=== PATIENT | female | born 1935 | race Caucasian/White ===

== ENCOUNTER → 2024-08-31 | Outpatient (CLI) | payer MEDICARE, OTHER, SELFPAY ==
[2024-08-31 16:22] LABS: Collection Type, Urine Clean Catch
[2024-08-31 16:59] LABS: Basophils % (Auto) 1 % (0-2.5); Eosinophils # (Auto) 0.1 Thou/mm3 (0.0-0.5); Eosinophils % (Auto) 1 % (0-10); Hematocrit 33.6 % (36.0-46.0); Hemoglobin 11.6 g/dL (12.0-16.0); Immature Granulocytes % (Auto) 0 % (0-0); Immature Granulocytes Auto 0.01 Thou/mm3 (0.00-0.00); Lymphocytes # (Auto) 2.4 Thou/mm3 (1.0-4.8); Lymphocytes % (Auto) 41 % (10-50); Mean Corpuscular HGB Conc 34.5 g/dl (31.0-37.0); Mean Corpuscular Hemoglobin 31.2 pg (25.0-35.0); Mean Corpuscular Volume 90 fL (80-100); Monocytes # (Auto) 0.8 Thou/mm3 (0.0-0.8); Monocytes % (Auto) 14 % (0-12); Neutrophils # (Auto) 2.6 Thou/mm3 (1.8-7.7); Neutrophils % (Auto) 43 % (37-80); Nucleated Red Blood Cell % 0 /100 WBC (0); Platelet Count 223 Thou/mm3 (140-440); RDW Standard Deviation 42.6 fL (36.4-46.3); Red Blood Count 3.72 Miln/mm3 (4.00-5.20); White Blood Count 5.9 Thou/mm3 (3.6-11.0)
[2024-08-31 17:12] LABS: Glucose Estimated Average 134 mg/dL (80-131); Hemoglobin A1C 6.3 % Hgb (4.8-6.0)
[2024-08-31 17:18] LABS: Bacteria,Urine Rare; Bilirubin,Urine Negative (Negative); Blood,Urine Negative (Negative); Clarity,Urine Clear (Clear/Hazy); Color,Urine Lt-Yellow (Lt Yel-Yel); Culture Indicated,Urine Not Indicated; Glucose, Urine Negative (Negative); Ketones,Urine Negative (Negative); Leukocyte Esterase,Urine Negative (Negative); Nitrite,Urine Negative (Negative); PH,Urine 6.5 (5.0-7.0); Protein,Urine Negative (Neg - Trace); RBC,Urine < 1 /hpf (0-3); Specific Gravity,Urine 1.021 (1.001-1.035); Squamous Epithelial Cell,Urine 3 /hpf (0-5); Urobilinogen,Urine Negative mg/dL (0.0-1.0); WBC,Urine < 1 /hpf (0-5)
[2024-08-31 17:25] LABS: Alanine Aminotransferase 12 U/L (10-49); Albumin, Serum 4.6 gm/dL (3.4-4.8); Albumin/Globulin Ratio 2.2 (1.2-2.2); Alkaline Phosphatase 86 U/L (46-116); Anion Gap 9 (7-16); Aspartate Amino Transferase 17 U/L (0-34); BUN/Creatinine Ratio 32 Ratio (12-20); Bilirubin,Total 0.4 mg/dL (0.3-1.2); Blood Urea Nitrogen 29 mg/dL (9-23); Calcium 9.9 mg/dL (8.3-10.6); Calcium (Corrected) 9.9 mg/dL (8.5-10.1); Carbon Dioxide 26.8 mMol/L (20.0-31.0); Cardiac Risk Estimate 6.2 RATIO (3.7-5.6); Chloride 100 mMol/L (98-107); Cholesterol 198 mg/dL (132-200); Creatinine (Component) 0.9 mg/dL (0.6-1.3); Globulin 2.1 gm/dL (2.3-3.5); Glucose 134 mg/dL (74-106); HDL Cholesterol 32 mg/dL (40-60); Osmolality,Calculated 279 (275-295); Potassium 4.1 mMol/L (3.4-5.1); Sodium 136 mMol/L (136-145); Thyroid Stimulating Hormone 1.02 uIU/mL (0.55-4.78); Total Protein 6.7 gm/dL (5.7-8.2); Triglycerides 476 mg/dL (30-150); eGFR > 60 See Note
== END | disposition home or self-care (01) ==
PROVIDERS: PCP Nurse Practitioner Family; Referring Provider Nurse Practitioner Family; Visit Provider Nurse Practitioner Family
DX: Z00.00 Encounter for general adult medical examination without abnormal findings (principal); I10 Essential (primary) hypertension; E78.2 Mixed hyperlipidemia; R73.03 Prediabetes
CPT/HCPCS: 36415; 80053; 80061; 81001; 83036; 84443; 85025

== ENCOUNTER → 2024-09-28 | Outpatient (CLI) | payer MEDICARE, OTHER, SELFPAY ==
[2024-09-28 17:39] LABS: Iron 101 mcg/dL (50-170)
[2024-09-28 17:41] LABS: Vitamin B12 917 pg/mL (211-911)
== END | disposition home or self-care (01) ==
LOC: COPL 16:13
PROVIDERS: PCP Nurse Practitioner Family; Referring Provider Nurse Practitioner Family; Visit Provider Nurse Practitioner Family
DX: D64.9 Anemia, unspecified (principal)
CPT/HCPCS: 36415; 82607; 83540

== ENCOUNTER → 2024-10-03 | Outpatient (CLI) | payer MEDICARE, OTHER, SELFPAY ==
[2024-10-09 06:59] LABS: Fecal Globin Result NOT DETECTED (NOT DETECTED)
== END | disposition home or self-care (01) ==
LOC: SLDO 11:49
PROVIDERS: PCP Nurse Practitioner Family; Referring Provider Nurse Practitioner Family; Visit Provider Nurse Practitioner Family
DX: D64.9 Anemia, unspecified (principal)
CPT/HCPCS: 82274; G0328

== ENCOUNTER 2025-01-19 11:36 | Emergency (ER) | payer MEDICARE, OTHER, SELFPAY ==
[2025-01-19 11:50] VITALS: BP 148/68; PULSE 83; RESP 16; TEMP 36.8; O2SAT 95; BMI 26.5
--- NOTE | 2025-01-19 12:00 | XR_ITS ---
Examination: CT brain head without contrast. 2-D sagittal coronal reconstructions Date and time of exam:January 19, 2025, 1220 hours INDICATIONS: Ground-level fall today with injury to the head, head pain CTDI: vol (mGy):43.8 DLP: (mGycm):872 Technique: Multiple CT axial sections of the brain have been obtained, 5 mm slice thickness. Contrast has not been administered. 2-D sagittal, coronal reconstructions have been obtained Low dose protocols were performed. One or more of the following dose reduction techniques were used; automated exposure control, adjustment of the mA and/or KV according to patient size, use of iterative reconstruction technique. Findings: No significant ventricular enlargement. Intra-axial or extra-axial hemorrhage density is not seen. No mass effect or midline shift Basal cisterns are not remarkable. Fourth ventricle is midline. Cranial vault intact. Impression: Negative for acute hemorrhage, mass effect or midline shift
--- NOTE | 2025-01-19 12:00 | XR_ITS ---
Examination: CT chest, without intravenous contrast. Sagittal and coronal 2-D reconstructions. Exam date and time: January 19, 2025 1223 hours INDICATIONS: Patient fell today with injury to the left chest, left rib pain CTDI:vol (mGy) 11.7 DLP: (mGycm) 425 Technique: Multiple 3.0 mm axial sections of the chest to been obtained. Bone and lung density settings are obtained. Sagittal and coronal 2-D reconstructions have been obtained. Low dose protocols were performed. One or more of the following dose reduction techniques were used; automated exposure control, adjustment of the mA and/or KV according to patient size, use of iterative reconstruction technique. Findings: Thoracic aorta pulmonary arteries appear intact on this noncontrast study No hemopericardium No pneumothorax pulmonary contusion or hemothorax Acute fracture left 10th rib posteriorly with minimal offset Manubrium body the sternum intact Thoracic vertebral bodies intact with spinal stimulator No visualized liver splenic or renal laceration No gallstones No pancreatic mass Posterior 23 mm right renal cyst Visualized abdominal aorta intact IMPRESSION: Thoracic aorta pulmonary arteries intact No hemopericardium, pneumothorax, pulmonary contusion or hemothorax Acute fracture left 10th rib posteriorly
--- NOTE | 2025-01-19 12:03 | EKG_ITS ---
[facility] Test Date: 2025-01-19 Pat Name: JODI WERNER Department: Room: - Gender: Female Center Administrator: : [id number] Requested By: Winifred Dailey Order Number: [id number] Reading MD: Winifred Dailey Measurements Intervals [place] Rate: 76 P: 50 TX: 150 QRS: 32 QRSD: 89 T: 89 QT: 387 QTc: 437 Interpretive Statements SINUS RHYTHM POSSIBLE LEFT ATRIAL ENLARGEMENT [-0.1mV P-WAVE IN V1/V2] NONSPECIFIC ST & T-WAVE ABNORMALITY Compared to ECG 05/01/2024 22:00:03 No significant changes /store/S0/[id number].pdf
--- NOTE | 2025-01-19 12:03 | PD.EDFALL ---
ED Fall Injury RME/HPI General Chief Complaint: Fall Stated Complaint: Fell and hit left ribs on toilet Time Seen by Provider: 01/19/25 11:41 Arrival date/time: 01/19/25 11:36 RME / HPI RME / HPI Narrative: 89-year-old female patient came in for evaluation regarding left posterior rib cage pain. Patient sustained a fall hitting her rib cage on the toilet bowl resulting to pain and contusion. Patient injury sustained yesterday. Patient denies any LOC denies any headache. Denies any nausea or vomiting. Patient is ambulatory. Denies any chest pain or abdominal pain. Patient took Tylenol yesterday. Patient is not taking any blood thinner. Related Data Home Medications ?Medication ?Instructions ?Recorded ?Confirmed telmisartan 40 mg tablet (Micardis) 40 mg PO HS ##0 01/04/12 03/03/23 Cranberry Fruit (Cranberry) 400 mg PO QDAY #0 tabs 12/05/15 03/03/23 Multivitamins (Multi-Vitamin) 1 tab PO QDAY ##0 12/05/15 03/03/23 acetaminophen 500 mg tablet 500 mg PO Q4HR PRN Pain 02/05/23 03/03/23 guaifenesin 400 mg tablet 400 mg PO QDAY 02/05/23 03/03/23 hydrochlorothiazide 25 mg tablet 25 mg PO QDAY 02/05/23 03/03/23 Previous Rx's ?Medication ?Instructions ?Recorded acetaminophen 300 mg-codeine 30 mg 1 tab PO TID PRN pain #21 tabs 01/19/25 tablet lidocaine 5 % topical patch 1 patch topical Q24H #15 ea 01/19/25 Allergies Allergy/AdvReac Type Severity Reaction Status Date / Time bee venom protein (honey bee) Allergy Unknown Rash Verified 01/19/25 11:40 Review of Systems Review of Systems Narrative Review of Systems: Review of system reviewed and within normal limits except mentioned in HPI ED Exam Narrative Physical exam: VITAL SIGNS: Reviewed. GENERAL APPEARANCE: Alert and interactive, follows commands, no acute distress, HEAD AND FACE: Non-traumatic. ENT: PERRL, pink conjunctivitis, eyelid no trauma, Mucous membrane moist. NECK: Supple, nontender, no nuchal rigidity. CHEST: Left posterior rib cage contusion and tenderness, no crepitus, no paradoxical movement, no retractions. LUNGS: Clear, well ventilated, symmetric, no rales, no wheezing, no ronchi, no stridor, good breath sounds bilaterally. HEART: Regular rate, regular rhythm, no murmur, no gallops. ABDOMEN: Soft, positive bowel sounds, nondistended, no guarding, nontender, no rebound, no masses, RECTAL: Deferred. GENITAL: Deferred. NEUROLOGICAL: Gross motor function intact sensory function intact, Appropriate for age. MUSCULOSKELETAL: low back nontender, full range of motion. EXTREMITIES: Nontender, full range of motion. SKIN: Color pink, dry, no rash, no lacerations, no abrasions, no contusions. LYMPHATICS: Deferred. Course Quality Measures none Orders Category Date Time Status EKG (ED ONLY) *Do not use* NOW Care 01/19/25 12:03 Completed Incentive Spirometry Treatment NOW Care 01/19/25 13:[address] chest wo con Stat Exams 01/19/25 12:[address] head/brain wo con Stat Exams 01/19/25 12:00 Completed EKG (ED Only) Stat Exams 01/19/25 12:03 Draft Acetaminophen Tab [Tylenol Tab] Med 01/19/25 12:00 Discontinued 650 mg PO X1 ONE Lidocaine 5% Patch Med 01/19/25 13:27 Discontinued 1 patch TOP X1 ONE Vital Signs Vital signs: Vital Signs Temperature 98.2 F 01/19/25 11:50 Pulse Rate 83 01/19/25 11:50 Respiratory Rate 16 01/19/25 11:50 Blood Pressure 148/68 H 01/19/25 11:50 Pulse Oximetry (%) 95 01/19/25 11:50 Oxygen Delivery Method Room Air 01/19/25 11:50 Fall MDM Narrative MDM Narrative:: 89-year-old female patient came in for evaluation regarding left posterior rib cage pain. Patient sustained a fall hitting her rib cage on the toilet bowl resulting to pain and contusion. Patient injury sustained yesterday. Patient denies any LOC denies any headache. Denies any nausea or vomiting. Patient is ambulatory. Denies any chest pain or abdominal pain. Patient took Tylenol yesterday. Patient is not taking any blood thinner. CT scan of the head came back unremarkable. CT scan of the chest showed Thoracic aorta pulmonary arteries intact No hemopericardium, pneumothorax, pulmonary contusion or hemothorax Acute fracture left 10th rib posteriorly EKG showed normal sinus rhythm, ventricular rate of 76 bpm, no ST segment elevation or depression noted. Results discussed with the patient. Patient received incentive spirometry equipment and education in the emergency room. Patient was also given Tylenol, and lidocaine patch Patient appears nontoxic and hemodynamically stable .Decision to discharge the patient. The patient/family was given an opportunity to ask questions and understood their discharge instructions. Discharge instructions specifically included follow up provider and time frame, current and/or new medications and possible side effects, indications for sooner follow up or return to the emergency department, and the expected course of current diagnosis. Patient reports feeling better as well and giving evidence of significant clinical improvement, I believe patient is now a candidate for discharge. Patient data External records reviewed:: None Clinical information provided by:: none Social determinants that could affect healthcare access:: none Patient has the following chronic illnesses:: Hypertension How is presenting disease/condition affected by chronic disease/condition?: uneffected by Evaluation data The following diagnostics were reviewed and interpreted by me:: lab results, radiology exam(s) and EKG tracing(s) Lab and/or radiology exams considered but not ordered:: None Interpretation Summary: See results MDM Medications / Prescriptions Medications or Prescriptions considered but not ordered:: None Medication administrations:: Medication Administration History Discontinued Medications Acetaminophen (Acetaminophen 325 Mg Tablet) 650 mg PO X1 ONE Stop: 01/19/25 12:01 Last Admin: 01/19/25 12:07 Dose: 650 mg Documented By: ABDOULAYE Lidocaine (Lidocaine 5% 1 Patch) 1 patch TOP X1 ONE Stop: 01/19/25 13:28 Tylenol and lidocaine Consultations Consultation(s) initiated? (list below): No Diagnosis Fall Differential Diagnosis: other (Rib fracture, pneumothorax hemothorax, fall) Most likely diagnosis given after review of the tests above:: Rib fracture status post fall Admission Indicated Admission indicated?: not indicated Explain why admission is indicated or not indicated:: Stable Admission Request Was there a request for admission?: No Disposition Plan Disposition Plan: Discharge Discharge Attestation Discharge Attestation: The patient and all family members were given an opportunity to ask questions and understood the discharge instructions. Discharge instructions specifically effects, indications for sooner follow up or return to the emergency department, and the expected course of current diagnosis. Patient condition: Stable Discharge Plan Plan Patient Disposition: HOME (Self Care) Discharge Disposition comment: Stable Prescriptions/Referrals Prescriptions/Med Rec: New lidocaine 5 % adhesive patch,medicated 1 patch topical Q24H Qty: 15 0RF Rx Instructions: leave on most painful area for up to 12 hrs acetaminophen-codeine 300-30 mg tablet 1 tab PO TID PRN (Reason: pain) Qty: 21 0RF No Action telmisartan [Micardis] 40 MG tablet 40 mg PO HS Qty: 0 Cranberry Fruit (Cranberry) 400 MG tablet 400 mg PO QDAY Qty: 0 Multivitamins (Multi-Vitamin) 1 TAB tablet 1 tab PO QDAY Qty: 0 Rx Instructions: has magnesium, zinc and D3- It's a combo hydrochlorothiazide 25 mg Tablet 25 mg PO QDAY guaifenesin 400 mg Tablet 400 mg PO QDAY Rx Instructions: over the counter for congestion 'cause the air is so dirty acetaminophen 500 mg Tablet 500 mg PO Q4HR PRN (Reason: Pain) Rx Instructions: over the counter- Had needed to take q4hrs for sciatica pain Referrals: Marilou Craft EYE SURGEON [Primary Care Provider] - In 1 week Problem List Clinical Impression: Closed rib fracture, Fall Patient/Caregiver Discharge Instructions Discharge Activity: activity as tolerated Education Materials: Preventing Falls: Staying Active, ED Rib Fracture Additional Instructions: Thank you for the opportunity for serving you today. You are stable for discharged . You are advised to: Follow-up with your PCP in 1 to 2 days Return to ED for worsening of symptoms Increase oral fluids Take medication as prescribed Use your incentive spirometry as instructed by respiratory therapist Print Language: [place] Island[place] Stand Alone Forms: [employer] Award Info., Patient Portal Info Letter
[2025-01-19] MEDS: ACETAMINOPHEN 325 MG TABLET 650 MG PO (12:07)
[2025-01-19] MEDS: LIDOCAINE 5% 1 PATCH TOP (14:08)
== END 2025-01-19 14:31 | disposition home or self-care (01) ==
PROVIDERS: Emergency Provider Emergency Medicine; PCP Nurse Practitioner Family
DX: S22.32XA Fracture of one rib, left side, initial encounter for closed fracture (principal); S09.90XA Unspecified injury of head, initial encounter; R94.31 Abnormal electrocardiogram [ECG] [EKG]; W18.30XA Fall on same level, unspecified, initial encounter
CPT/HCPCS: 70450; 71250; 93005; 99283; J3490; A9270